=== PATIENT | male | born 1965 | race Caucasian/White ===

== ENCOUNTER 2020-10-27 08:52 | Day surgery (SDC) | payer BC ==
[~2020-10-27 08:52] MED LIST: Lactated Ringers 1,000 ML IV SCH; Midazolam 1 MG/ML 2 ML SDV ONE; Propofol 200 MG/20 ML SDV ONE; Sodium Chloride 0.9% 10 ML Syringe FLUSH PRN
--- NOTE | 2020-10-27 11:04 | PCM.HPR ---
H & P Addendum review - H & P Addendum Review Date of Original H & P: 09/29/20 Date Reviewed: 10/27/20 Time Reviewed: 11:04 Patient was Examined: No Changes
[2020-10-27] MEDS ORDERED: Propofol 200 MG/20 ML SDV ONE (11:15)
[2020-10-27] MEDS ORDERED: Midazolam 1 MG/ML 2 ML SDV ONE (11:15)
--- NOTE | 2020-10-27 11:33 | PCM.OPNOTE ---
- General Post-Op/Procedure Note Date of Surgery/Procedure: 10/27/20 Operative Procedure(s): Colonoscopy Findings: Normal Pre Op Diagnosis: Hx Polyps Post-Op Diagnosis: Same Anesthesia Technique: GEORGE Primary Surgeon: Edy Rucker Anesthesia Provider: Ginger Khan Complications: None Condition: Good
--- NOTE | 2020-10-27 13:12 | OR ---
Date of Procedure: 10/27/2020 PREOPERATIVE DIAGNOSIS: History of colon polyps. POSTOPERATIVE DIAGNOSIS: Normal colonoscopy. PROCEDURE: Colonoscopy. ANESTHESIA: IV sedation. DESCRIPTION OF PROCEDURE: The patient was brought to the procedure room where he was placed on his left side and IV sedation administered. Digital rectal exam was performed, which was normal. Colonoscope was inserted and advanced to the level of the cecum without difficulty. Cecal position was confirmed by identifying the appendiceal lumen and ileocecal valve. Prep was good and surfaces were well visualized. Upon withdrawing the scope, the ascending, transverse, and descending colon were normal in appearance. Sigmoid colon and rectum were normal. Retroflexion was normal. Air was removed and the scope withdrawn. The patient tolerated the procedure well and returned to recovery in stable condition. Recommend surveillance colonoscopy again in 5 years. PEPE CASTILLO MD /[id number]
[2020-10-27 16:17] VITALS: BP 114/86; PULSE 72
== END 2020-10-27 12:30 | disposition home or self-care (01) ==
LOC: LL.SDS 08:52
PROVIDERS: ATTEND Surgery
DX: Z12.11 Encounter for screening for malignant neoplasm of colon (principal); I10 Essential (primary) hypertension; E78.5 Hyperlipidemia, unspecified; M25.511 Pain in right shoulder; Z01.812 Encounter for preprocedural laboratory examination; Z20.822 Contact with and (suspected) exposure to COVID-19; Z83.71 Family history of colonic polyps; Z86.010 Personal history of colon polyps; Z88.1 Allergy status to other antibiotic agents; Z88.0 Allergy status to penicillin; Z88.8 Allergy status to other drugs, medicaments and biological substances; Z79.82 Long term (current) use of aspirin; Z79.899 Other long term (current) drug therapy; Z85.46 Personal history of malignant neoplasm of prostate
CPT/HCPCS: 45378; 87635; J2250; J2704; J7120; 00812; U0002